=== PATIENT | male | born 2000 | race Two or more races ===

== ENCOUNTER 2023-09-03 00:42 | Emergency (ER) | payer BC ==
[~2023-09-03] VITALS: Ht 188 cm; Wt 104.3 kg
[2023-09-03] MEDS ORDERED: METOCLOPRAMIDE HCL 5 MG/ML VIAL IM STA (01:15)
[2023-09-03] MEDS ORDERED: FAMOtidine 10 MG/ML (4ML VIAL) IV PUSH STA (01:16)
[2023-09-03] MEDS ORDERED: RINGERS SOLUTION,LACTATED 500 ML IV STA (01:16)
[2023-09-03] MEDS ORDERED: HYOSCYAMINE SULFATE 0.125 MG TAB.SUBL SL ONE (01:30)
== END 2023-09-03 02:47 | disposition home or self-care (01) ==
LOC: ER 00:42
DX: K30 Functional dyspepsia (principal); K29.70 Gastritis, unspecified, without bleeding